=== PATIENT | male | born 1995 | race Caucasian/White ===

== ENCOUNTER 2022-12-23 13:39 | Outpatient (CLI) | payer OTHER ==
--- NOTE | 2022-12-25 09:56 | MRI Report ---
PROCEDURE: HAND WO - RT INDICATIONS: RIGHT HAND PAIN TECHNIQUE: Noncontrast coronal T1 spin echo and T2 fast spin echo with fat saturation, axial proton density fast spin echo and T2 fast spin echo with fat saturation, sagittal T1 spin echo and STIR through the hand and fingers. COMPARISON: None. FINDINGS: Image quality: Excellent. Bones: The bones are normally aligned, without marrow contusions or fractures. Normal osseous signal is seen surrounding the fifth metacarpophalangeal joint. No intra-osseous lesions. Soft tissues: Focal soft tissue edema is seen at the volar ulnar aspect of the fifth metacarpophalan geal joint. The adjacent fifth flexor tendons appear to be intact. The extensor digiti minimi tendon is intact. No definite defect is seen within the joint capsule. There is mild asymmetry of the A1 pul tj without a definite defect. The edema appears to be slightly distal to the hypothenar muscular ins ertions. The visualized flexor and extensor tendons are otherwise intact. No collateral ligament tear is seen. Visualized muscles demonstrate normal bulk and internal signal. No intramuscular masses id entified. No ganglion cysts. IMPRESSION: Focal nonspecific soft tissue edema is seen at the volar ulnar aspect of the fifth metacarpophalangea l joint. Findings may be secondary to a subtle A1 tariq injury or capsular tear (although definite d efect is seen), versus focal flexor tenosynovitis, soft tissue contusion, or repetitive friction. No acute osseous edema is seen. Reviewed by: Errol Lala MD on 12/25/2022 9:55 AM PDT Approved by: Errol Lala MD on 12/25/2022 9:55 AM PDT Station ID: [id number]
== END 2022-12-23 13:40 | disposition home or self-care (01) ==
LOC: DI 13:39
PROVIDERS: ATTEND Student in an Organized Health Care Education/Training Program
DX: M79.641 Pain in right hand (principal); R93.6 Abnormal findings on diagnostic imaging of limbs; R93.89 Abnormal findings on diagnostic imaging of other specified body structures